=== PATIENT | female | born 2000 | race African-American/Black ===

== ENCOUNTER 2020-03-02 02:40 | Inpatient (IN) | payer OTHER, SELFPAY ==
[2020-03-02 02:55] VITALS: BP 147/84; PULSE 71
[2020-03-02 03:00] VITALS: BMI 39.5
--- NOTE | 2020-03-02 03:07 | LDADM ---
This patient, Lorraine Diez, was admitted to Labor/Delivery/Recovery 102 on 03/02/20 at 02:40. Plans for labor, pain management and were discussed with patient. Patient/family oriented to hospital policies and general routines including ID bracelet, bed and alarms, visiting hours, pain management, procedures, bathroom and other care routines, personal items, smoking policy, room service/diet and guest tray routines, infant security routines, and visiting hours. Patient/Family are encouraged to report perceived risks to care and to ask questions if they do not understand what they are told or what they should do. See OBIX for further documentation.
[2020-03-02 03:28] VITALS: TEMP 37.3
--- NOTE | 2020-03-02 03:32 | PM.IMHP ---
H&P: HPI History of Present Illness Chief complaint: Leaking Narrative: Lorraine Diez is a 19 year old female at 38 weeks gestation. care with Dr. Nelson. SHe presents to L&D with spontaneous rupture of membranes and contractions. Cervix was noted to be 6cm on presentation. Review of Systems Constitutional: Constitutional: Reports no additional constitutional complaints Cardiovascular: Cardiovascular: Reports no additional cardiovascular complaints Respiratory: Respiratory: Reports no additional respiratory complaints Gastrointestinal: Gastrointestinal: Reports no additional gastrointestinal complaints Genitourinary: Genitourinary: Reports no additional female genitourinary complaints Musculoskeletal: Musculoskeletal: Reports no additional musculoskeletal complaints Psychiatric: Psychiatric: Reports no additional psychiatric complaints [facility] Social History Social History Smoking status: Never smoker Substance use: never Gender identity (if verbalized by the patient): Female Spiritual care concerns: No Meds Home Medications and Allergies Allergies Allergy/AdvReac Type Severity Reaction Status Date / Time No Known Drug Allergies Allergy Unknown Verified 07/19/16 09:08 Vital Signs Vital Signs - 24 hr 03/02/20 02:55 03/02/20 03:28 Temperature 37.3 C Pulse Rate 71 Blood Pressure 147/84 H Exam Const: General: comfortable (uncomfortable with contractions, but no distress in between contractions) Resp: Effort & Inspection: normal respiratory effort Cardio: Rate: regular rate GI: GI Palp: Yes Soft to palpation and No Tenderness to palpation present (GI) Other: gravid Neuro: Speech: normal speech Psych: Mental Status: mental status grossly normal Affect: normal affect Assessment and Plan Assessment and plan (1) Active labor: Status: Acute Assessment and Plan: Admit Pain management as requested (2) SROM (spontaneous rupture of membranes): Status: Acute (3) Term : Code(s): Z34.90 - Encounter for supervision of normal , unspecified, unspecified trimester Status: Acute
[2020-03-02] MEDS: AMPICILLIN 2 GM/NS 100 ML 2 GM/100 ML BAG IVPB (03:40)
[2020-03-02 03:41] LABS: Basophils Percent Auto 0.1 % (0.2-1.2); Eosinophils Absolute Auto 0.1 K/mm3 (0-0.3); Eosinophils Percent Auto 0.8 % (0-4.4); Hematocrit 32.9 % (37.0-47.0); Hemoglobin 10.3 g/dL (12.0-15.0); Immature Granulocyte Absolute 0.04 K/mm3 (0.00-0.031); Immature Granulocyte Percent A 0.5 % (0-0.5); Lymphocytes Absolute Auto 2.36 K/mm3 (0.9-3.2); Lymphocytes Percent Auto 27.3 % (18.3-44.2); Mean Corpuscular HGB Conc 31.3 g/dl (32-36); Mean Corpuscular Hemoglobin 26.4 pg (26-34); Mean Corpuscular Volume 84.4 fl (80-100); Monocytes Absolute Auto 0.8 K/mm3 (0.1-0.6); Monocytes Percent Auto 9.5 % (2.6-8.5); Neutrophils Absolute Auto 5.3 K/mm3 (1.3-6.7); Neutrophils Percent Auto 61.8 % (45.5-73.1); Platelet Count Result 189 k/mm3 (150-375); Red Cell Distribution Width 14.6 % (11.5-14.5); White Blood Count 8.6 K/mm3 (4.5-10.0)
[2020-03-02] MEDS: LACTATED RINGERS 1,000 ML 125 ML IV CONT (03:41)
[2020-03-02 04:01] VITALS: BP 133/77; PULSE 67
[2020-03-02 04:27] LABS: HIV 1/2 Ab P24 Ag Result Negative (Negative)
[2020-03-02 04:47] LABS: Hepatitis B Surface Antigen Negative (Negative)
[2020-03-02] MEDS: OXYTOCIN 30 UNITS/NS 500 ML 30 UNITS/500 ML BAG 125 UNITS IV CONT (05:05)
--- NOTE | 2020-03-02 05:28 | OP_ITS ---
DATE OF PROCEDURE: 03/02/2020 PROCEDURE: Normal spontaneous vaginal delivery. PREDELIVERY DIAGNOSES: 1. 38-week term gestation. 2. Spontaneous rupture of membranes. 3. Active labor. POSTDELIVERY DIAGNOSES: 1. 38-week term gestation. 2. Spontaneous rupture of membranes. 3. Active labor. ESTIMATED BLOOD LOSS: 200 mL. ANESTHESIA: Local. FINDINGS: 1. Single live female born on March 02, 2021 at 0413 hours. Apgars 9 and 9. Weight 6 pounds 1 ounces. 2. First-degree perineal laceration repaired with 3-0 Vicryl and a periurethral laceration repaired with 3-0 Vicryl. BRIEF HISTORY: This 19-year-old, G2, P1, care with Dr. Healy, presented to Labor and Delivery with spontaneous rupture of membranes in active labor, was noted to be 6 cm dilated. DESCRIPTION OF THE PROCEDURE: Upon being called to the delivery room, the had precipitously delivered. found to be crying and vigorous on the bed, delivered by the Labor and Delivery nursing team. Cord still intact. Placenta still in situ. The cord was clamped and cut. Cord gases were collected. Gentle traction was applied on the umbilical cord with fundal massage. Placenta was spontaneously delivered. Fundal massage applied. Fundus was noted to be firm. Exam performed. First degree perineal laceration was noted as well as the periurethral laceration. These were repaired with 3-0 Vicryl. Good hemostasis was confirmed. IV Pitocin was started. Bleeding had slowed down. This concluded the procedure. All instrument and sponge counts were correct at the end of the procedure. The patient and resting comfortably in the labor room. D I MT: [facility]
[2020-03-02 05:57] VITALS: TEMP 37
[2020-03-02 07:25] LABS: Rapid Plasma Reagin Non-Reactive (NonReactive)
[2020-03-02 07:40] VITALS: BP 135/80; PULSE 77; RESP 18; TEMP 37.1; O2SAT 100
--- NOTE | 2020-03-02 12:42 | PC.NURSE ---
0733 Pt admitted to room 285 per wheelchair from labor and delivery after vaginal delivery of viable female at [address] Paulino. Margaret ris a and is choosing to bottle feed her baby. Pt is alone at this time; her mother was with her in labor. Pt oriented to room, staffing and procedures; admission folder reviewed.
[2020-03-02 19:40] VITALS: BP 137/82; PULSE 76; RESP 14; TEMP 37; O2SAT 100
[2020-03-03 05:50] LABS: Hematocrit 30.4 % (37.0-47.0); Hemoglobin 9.6 g/dL (12.0-15.0)
[2020-03-03 08:35] VITALS: BP 128/85; PULSE 67; RESP 18; TEMP 37.1; O2SAT 100
[2020-03-03] MEDS: POLYSACCHARIDE IRON COMPLEX 150 MG CAPSULE PO (09:13)
[2020-03-03] MEDS: DOCUSATE SODIUM 100 MG CAPSULE PO (09:13)
--- NOTE | 2020-03-03 11:58 | P.PNOB_ITS ---
OB - PN: Subj Subjective Date/time seen: 03/03/20 11:58 Lorraine is a 19yo now P2002 s/p . PPD#1 She denies any issues. She denies pain. She reports her bleeding is improving. She is tolerating regular diet w/o N/v. she is passing flatus and voiding without difficulty. She is ambulating without s/sx of anemia. She is bottle feeding. She would like to be discharged home today. OB - PN: Obj Data Labs CBC & Chem 7: 03/03/20 05:10 Labs: Laboratory Results - last 24 hr 03/03/20 05:10 Hgb 9.6 L Hct 30.4 L OB - PN A/P Assessment and Plan (1) Term : Code(s): Z34.90 - Encounter for supervision of normal , unspecified, unspecified trimester Status: Acute Plan day: 1 Plan: routine care and discharge home Comments: Follow up in 4 weeks. Pelvic rest, take medications as prescribed, Pain/fever/bleeding/HTN ER return precautions reviewed with patient Time Spent With Patient Time: Total time spent is greater than 50% in coordination of care (as docume nted) at patient's floor/unit and/or counseling patient: Review of Systems Constitutional: Constitutional: Denies body ache(s) and Denies chills Cardiovascular: Cardiovascular: Denies rapid heart rate Respiratory: Respiratory: Denies cough and Denies dyspnea Gastrointestinal: Gastrointestinal: Denies abdominal pain, Denies nausea and Denies vomiting Genitourinary: Genitourinary: Denies pelvic pain Neurologic: Denies headache(s) Exam Const: General: comfortable, no acute distress, alert and awake Resp: Effort & Inspection: normal respiratory effort Auscultation: clear to auscultation bilaterally Cardio: Rate: regular rate GI: Auscultation: normal bowel sounds Other: soft, non-tender, non- distended : Other: Fundus firm below umbilicus Psych: Appearance: grossly normal Affect: normal affect Attitude: cooperative
[2020-03-03 19:05] VITALS: BP 130/80; PULSE 72; RESP 13; TEMP 37; O2SAT 100
[2020-03-04 09:10] VITALS: BP 142/89; PULSE 86; RESP 18; TEMP 36.6
--- NOTE | 2020-03-04 11:46 | PC.NURSE ---
Patient instructed on viewing the discharge video Mother & Baby Care, The First Two Weeks . Patient was given the opportunity and encouraged to ask questions. Patient verbalized understanding of information shared and has been given the mother/baby guide for home reference.
--- NOTE | 2020-03-08 10:33 | P.HP_ITS ---
H&P: HPI History of Present Illness Chief complaint: Leaking Narrative: Lorraine Diez is a 19 year old female at 38 weeks and 5 days gestation presenting to L&D with contractions. She states she has been having intermittent contractions over the last week, but became more regular and intense this morning. Contractions are about every 6-8 minutes apart. She has also had unexplained vaginal bleeding over the last week or so. BPP and US have been reassuring. Placenta is fundal location. She had red bleeding yesterday and was evaluated on L&D cervix was 1cm This morning, the bleeding is more like brownish discharge. On initial exam on L&D, her cervix was noted to be dilated to 3cm. Review of Systems Constitutional: Constitutional: Reports no additional constitutional complain ts Cardiovascular: Cardiovascular: Reports no additional cardiovascular complaints Respiratory: Respiratory: Reports no additional respiratory complaints Gastrointestinal: Comments: contractions Genitourinary: Comments: vaginal bleeding Musculoskeletal: Musculoskeletal: Reports no additional musculoskeletal complaints Neurologic: Reports system reviewed and no additional complaints, except as documented Psychiatric: Psychiatric: Reports no additional psychiatric complaints REPLACED BY [facility] Social History Social History Smoking status: Never smoker Substance use: never Gender identity (if verbalized by the patient): Female Spiritual care concerns: No Meds Home Medications and Allergies Home Medications Medication Instructions Recorded Confirmed Type acetaminophen [Nortemp] 650 mg PO Q6H PRN 10 Days #200 ml 03/03/20 Rx docusate sodium 100 mg PO DAILY 30 Days #30 cap 03/03/20 Rx ibuprofen 600 mg PO Q6H PRN 10 Days #200 ml 03/03/20 Rx polysaccharide iron complex 150 mg PO BIDWM 30 Days #60 cap 03/03/20 Rx Allergies Allergy/AdvReac Type Severity Reaction Status Date / Time No Known Drug Allergies Allergy Unknown Verified 07/19/16 09:08 Exam Const: General: no acute distress and uncomfortable (with contractions) Resp: Effort & Inspection: normal respiratory effort Cardio: Rate: regular rate GI: GI Palp: Yes Soft to palpation Skin: General skin exam: normal color Psych: Mental Status: mental status grossly normal Affect: normal affect Assessment and Plan Assessment and plan (1) Term : Code(s): Z34.90 - Encounter for supervision of normal , unspecified, unspecified trimester Status: Acute (2) Active labor: Status: Acute Assessment and Plan: Admit to L&D Pain management as requested GBS negative Discussed augmentation of labor if needed (3) Vaginal bleeding during : Code(s): O46.90 - Antepartum hemorrhage, unspecified, unspecified trimester Status: Acute
--- NOTE | 2020-03-08 10:50 | PM.OBDSVD ---
DS: Diagnosis Admitting Diagnosis Admitting Diagnosis: Encounter for supervision of normal , unspecified, third trimester Discharge Diagnosis (1) Active labor: Status: Acute (2) SROM (spontaneous rupture of membranes): Status: Acute (3) Term : Code(s): Z34.90 - Encounter for supervision of normal , unspecified, unspecified trimester Status: Acute OB - DS: Summary Hospital Course Hospital Course: Patient was admitted for active labor and spontaneous rupture of membranes. Normal spontaneous vaginal delivery. course was uncomplicated. OB Procedures : None OB Procedures Intrapartum: Spontaneous Vag Delivery OB Procedures: : None Peripartum Data Laceration description: Perineal - 1st Degree complications: none Status at Discharge Overall status at discharge: patient is progressing back to baseline Time Spent with Patient Time attestation: Total time spent providing and/or coordinating discharge services: Exam Const: General: comfortable, no acute distress, alert and awake Orientation/consciousness: patient oriented x3 Resp: Effort & Inspection: normal respiratory effort Auscultation: clear to auscultation bilaterally Cardio: Rate: regular rate GI: Auscultation: normal bowel sounds Other: soft, non-tender, non-distended : Other: Fundus firm below umbilicus Skin: General skin exam: normal color Neuro: Speech: normal speech Psych: Appearance: grossly normal Mental Status: mental status grossly normal Affect: normal affect Attitude: cooperative Discharge Plan Discharge Attending physician on discharge: Linda Mccray Discharging Clinician: Linda Mccray Anticipated Discharge Date/Time: 03/03/20 17:00 Patient Disposition: Home, Self-Care Activity: pelvic rest Diet: regular Discharge Instructions: Education: Mom and Baby Guide Given to: Mother Follow-Up: Call your delivering provider's office for an appointment to be seen in: 4 Weeks Mom and baby should come to the [facility] for the follow-up appointment. Appointment Date/Time: March 06, 2020 at 9:00 am What to expect at your follow-up visit: Physical Assessment Call [phone] if you are unable to keep your appointment time. BREAST CARE: 1. Wear a snug supportive bra. 2. For engorgement discomfort: Breast Feeding: A. Apply warm moist washcloths B. Express milk as needed to relieve engorgement C. Wear loose clothing 3. For sore nipples: A. Identify correct latch-on B. Apply warm moist washcloths before and after nursing C. Air dry nipples after nursing D. May apply Lansinoh cream to nipples EPISIOTOMY/PERINEAL CARE: 1. Until bleeding stops, use your rock bottle after urinating 2. Change your pad frequently throughout the day 3. You may take sitz baths several times a day (fill your bathtub with warm water and soak for 20 minutes.) Do NOT bathe in the water 4. No tub baths until seen by your physician - You may shower ACTIVITY: 1. Rest as much as possible. 2. Do not exercise or lift anything heavier than your baby (such as laundry or other children.) 3. Avoid stairs or driving as much as possible. 4. Do not put anything into the vagina. No douching, tampons, or sexual activity until seen by physician. NOTIFY PHYSICIAN IF YOU HAVE ANY QUESTIONS OR IF ANY OF THE FOLLOWING SYMPTOMS OCCUR: 1. If your episiotomy or incision becomes red, swollen, or more painful than what you have experienced in the hospital. 2. If your vaginal bleeding becomes foul smelling. 3. If your vaginal bleeding becomes more heavy than a period or if your bleeding changes from pink to bright red. However, you may pass an occasional walnut-sized clot once or twice for the first week . 4. If you experience a sharp, shooting pain in you calves. 5. If yo
== END 2020-03-04 11:42 | disposition home or self-care (01) | DRG 560 ==
LOC: ANHLDR 02:58 → ANHOB2 03-03 10:14 → ANHLDR 03-06 14:52 → ANHOB2 03-06 14:52
PROVIDERS: Admitting Provider Obstetrics & Gynecology; Visit Provider Obstetrics & Gynecology
DX: O99.824 Streptococcus B carrier state complicating childbirth (principal); Z3A.39 39 weeks gestation of pregnancy; Z37.0 Single live birth; Z23 Encounter for immunization; O70.0 First degree perineal laceration during delivery; O71.82 Other specified trauma to perineum and vulva; O62.3 Precipitate labor
CPT/HCPCS: 36415; 85014; 85018; 85025; 86592; 86703; 86762; 86850; 86900; 86901; 87340; A9270; G0432; J0290; J2590; J7120